=== PATIENT | male | born 1995 | race Caucasian/White ===

== ENCOUNTER → 2017-08-30 | Outpatient (CLI) | payer OTHER ==
--- NOTE | 2017-08-30 15:12 | EKG ---
FACILITY: [facility] - [place] PATIENT NAME: AUSTIN AJ : [id number] MR: [id number]: [id number] EXAM DATE: ORDERING PHYSICIAN: DARINEL POTTER TECHNOLOGIST: NAHID Test Reason : PRE-EMPLOYMENT Blood Pressure : / mmHG Vent. Rate : 076 BPM Atrial Rate : 076 BPM P-R Int : 132 ms QRS Dur : 092 ms QT Int : 376 ms P-R-T Axes : 050 056 056 degrees QTc Int : 423 ms Normal sinus rhythm with sinus arrhythmia Normal ECG No previous ECGs available Confirmed by TRELL HOLLIS ([id number]) on 08/30/2017 8:04:45 PM Referred By: DARINEL POTTER Confirmed By:TRELL HOLLIS
== END ==
LOC: RESP 14:54
PROVIDERS: ATTEND Family Medicine
DX: Z02.9 Encounter for administrative examinations, unspecified (principal)
CPT/HCPCS: 93005